=== PATIENT | female | born 1970 | race Caucasian/White ===

== ENCOUNTER 2017-07-12 20:32 | Emergency (ER) | payer BC ==
[~2017-07-12] VITALS: Ht 170.2 cm; Wt 94.3 kg
[2017-07-12] MEDS ORDERED: LISINOPRIL10 MG PO (21:09)
[2017-07-12] MEDS ORDERED: ADVIL200 MG PO (21:09)
[2017-07-12] MEDS ORDERED: BACTRIM DS TAB1 EACH PO (23:01)
[2017-07-12] MEDS ORDERED: KEFLEX500 MG PO (23:01)
== END 2017-07-12 23:52 | disposition home or self-care (01) ==
LOC: ED 20:32
DX: L03.116 Cellulitis of left lower limb (principal); I10 Essential (primary) hypertension; Z88.0 Allergy status to penicillin; Z79.899 Other long term (current) drug therapy; Z23 Encounter for immunization
CPT/HCPCS: 90471; 90715; 99283